=== PATIENT | female | born 1960 | race Caucasian/White ===

== ENCOUNTER 2016-05-21 06:37 | Emergency (ER) | payer SELFPAY ==
[~2016-05-21] VITALS: Ht 157.5 cm; Wt 40.0 kg
[~2016-05-21 06:37] MED LIST: VENTAER INH
[2016-05-21 06:43] VITALS: BP 126/58; PULSE 82; RESP 18; TEMP 102.3; O2SAT 99
[2016-05-21] MEDS ORDERED: VENTAER INH (06:43)
--- NOTE | 2016-05-21 06:59 | PD ---
HPI . cold, flu, gi upset x 4 days Chief Complaint: Cold / Flu Symptoms Time Seen by Provider: 06:59 Travel History International Travel<30 days: No Contact w/Intl Traveler<30days: No Traveled to known affect area: No History of Present Illness HPI 56-year-old female with history of emphyseam and tobaccoism here with complaints of flulike symptoms for 4 days. Patient says she initially started off with fever, chills, nausea, vomiting, diarrhea on and Saturday. The diarrhea has subsided, but she continues to experience fever, chills, coughing with some phlegm, poor oral intake and intermittent nausea and vomiting. Patient has not tried anything to improve her symptoms. She does not have a primary care provider. She was transported to the hospital via [facility] as she was too weak and frail to come by herself. In transport to the ED patient had nausea and vomiting and was given Zofran. At the time of examination patient admits to intermittent chest pain only when coughing. She denies any shortness of breath. She is no longer having diarrhea. PFSH Past Medical History Respiratory: Yes (EMPHYSEMA) ?: Not Menopausal: Yes : 5 Para: 3 Past Surgical History Hysterectomy: No Other Surgery: Yes (NECK SURGERIES/ HAND) Social History Alcohol Use: No Tobacco Use: Yes (1/2PPD) Substance Use: Yes (marijuana) Allergies-Medications (Allergen,Severity, Reaction): Coded Allergies: No Known Allergies (Unverified , 05/21/16) Reported Meds & Prescriptions Reported Meds & Active Scripts Active Proair Hfa 8.5 GM Inh (Albuterol Sulfate) 90 Mcg/Act Aer 2 Puff INH Q6H PRN 108 mcg/actuation Tessalon Perles (Benzonatate) 100 Mg Cap 100 Mg PO TID PRN Zithromax Z-Reinaldo (Azithromycin) 250 Mg Dspk 250 Mg PO DIRECTED 500 MG (2 tabs) day 1, then 1 tab days 2-5. Prednisone 50 Mg Tab 50 Mg PO DAILY Reported Ventolin Hfa 18 GM Inh (Albuterol Sulfate) 90 Mcg/Act Aer 2 Puff INH Q4H PRN Review of Systems General / Constitutional: Positive: Fever, Chills Eyes: No: Visual changes HENT: Positive: Congestion, No: Headaches, Neck Stiffness Cardiovascular: No: Chest Pain or Discomfort Respiratory: Positive: Cough, Shortness of Breath, Wheezing Gastrointestinal: Positive: Nausea, Vomiting, No: Diarrhea, Abdominal Pain Genitourinary: No: Dysuria Musculoskeletal: No: Pain Skin: No Rash Neurologic: No: Weakness Psychiatric: No: Depression Endocrine: No: Polydipsia Hematologic/Lymphatic: No: Easy Bruising Physical Exam Narrative GENERAL: AAO x 3,ill appearing, frail, cachetic, no respiratory distress SKIN: Warm and dry. HEAD: Normocephalic and atraumatic. EYES: No scleral icterus. No injection or drainage. EOM intact, PERRLA ENT: No nasal drainage noted. Mucous membranes pink. Airway patent. Mild post pharynx erythema. Left TM slightly erythematous. NECK: Supple, trachea midline. No JVD. No lymphadenopathy. CARDIOVASCULAR: Regular rate and rhythm without murmurs, gallops, or rubs. RESPIRATORY: Breath sounds diminished bilaterally. Scattered wheezing .No accessory muscle use. No rhonchi or rales. GASTROINTESTINAL: Abdomen soft, non-tender, nondistended. EXTREMITIES: No cyanosis or edema. BACK: Nontender without obvious deformity. No CVA tenderness. PSYCH: AAO x 3, normal affect. Data Data Last Documented VS Vital Signs Date Time Temp Pulse Resp B/P Pulse Ox O2 Delivery O2 Flow Rate FiO2 05/21/16 10:46 99.1 76 18 129/74 94 Nasal Cannula 1 Orders Acetaminophen (Tylenol) (05/21/16 07:00) Influenzae A/B Antigen (05/21/16 06:59) Complete Blood Count With Diff (05/21/16 07:17) Basic Metabolic Panel (Bmp) (05/21/16 07:17) Iv Access Insert/Monitor (05/21/16 07:17) Ecg Monitoring (05/21/16 07:17) Oximetry (05/21/16 07:17) Oxygen Administration (05/21/16 07:17) Chest, Single Ap (05/21/16 07:17) Sodium Chloride 0.9% Flush (Ns Flush) (05/21/16 07:30) Lactic Acid Sepsis Protocol (05/21/16 07:39) Blood Culture (05/21/16 07:39) Albuterol-Ipratropium Neb (Duoneb Neb) (05/21/16 09:00) Prednisone (Deltasone) (05/21/16 09:45) Labs Laboratory Tests Test 05/21/16 05/21/16 05/21/16 07:20 07:30 08:04 Sodium Level 129 MEQ/L Potassium Level 3.6 MEQ/L Chloride Level 94 MEQ/L Carbon Dioxide Level 26.1 MEQ/L Anion Gap 9 MEQ/L Blood Urea Nitrogen 9 MG/DL Creatinine 0.77 MG/DL Estimat Glomerular Filtration 78 ML/MIN Rate Random Glucose 100 MG/DL Calcium Level 8.2 MG/DL White Blood Count 7.3 TH/MM3 Red Blood Count 4.45 MIL/MM3 Hemoglobin 12.7 GM/DL Hematocrit 37.9 % Mean Corpuscular Volume 85.1 FL Mean Corpuscular Hemoglobin 28.4 PG Mean Corpuscular Hemoglobin 33.4 % Concent Red Cell Distribution Width 19.9 % Platelet Count 141 TH/MM3 Mean Platelet Volume 8.8 FL Neutrophils (%) (Auto) 87.4 % Lymphocytes (%) (Auto) 4.5 % Monocytes (%) (Auto) 7.4 % Eosinophils (%) (Auto) 0.0 % Basophils (%) (Auto) 0.7 % Neutrophils # (Auto) 6.4 TH/MM3 Lymphocytes # (Auto) 0.3 TH/MM3 Monocytes # (Auto) 0.5 TH/MM3 Eosinophils # (Auto) 0.0 TH/MM3 Basophils # (Auto) 0.1 TH/MM3 CBC Comment DIFF FINAL Differential Comment Lactic Acid Level 1.9 mmol/L MDM Medical Decision Making Medical Screen Exam Complete: Yes Emergency Medical Condition: Yes Medical Record Reviewed: Yes Differential Diagnosis influenza, copd exacerbation, PNA, gastroenteritis, less likely sepsis Narrative Course 56-year-old female with history of emphyseam and tobaccoism here with complaints of flulike symptoms for 4 days. Patient says she initially started off with fever, chills, nausea, vomiting, diarrhea on and Saturday. The diarrhea has subsided, but she continues to experience fever, chills, coughing with some phlegm, poor oral intake and intermittent nausea and vomiting. Patient has not tried anything to improve her symptoms. She does not have a primary care provider. She was transported to the hospital via [facility] as she was too weak and frail to come by herself. In transport to the ED patient had nausea and vomiting and was given Zofran. At the time of examination patient admits to intermittent chest pain only when coughing. She denies any shortness of breath. She is no longer having diarrhea. Patient was seen and examined. She is ill-appearing with scattered wheezing. She is febrile with a temperature of 102.3. While in the ED patient was given some Tylenol. Flu testing was ordered along with CBC, BMP and chest x-ray. CBC within normal limits except for low platelet count of 141. BMP with sodium of 129. Chest x-ray with hyperinflation usually seen in COPD. Influenza test negative. Temp recheck 99.6 Lactic acid WNL Given nebulizer treatment. Patient rechecked and doing better. Explained discharge meds and instructions to her. Encouraged her to follow up with her primary care provider. Diagnosis Primary Impression: COPD exacerbation Additional Impression: Viral intestinal infection Patient Instructions: COPD (Chronic Obstructive Pulmonary Disease) (ED), General Instructions Additional Instructions: Take medications as prescribed. Follow up with your primary care doctor. Return to ED if your symptoms return or worsen. Med/Other Pt SpecificInfo: Prescription(s) given Scripts Albuterol 8.5 GM Inh (Proair Hfa 8.5 GM Inh)90 Mcg/Act Aer2 Puff INH Q6H PRN ( SHORTNESS OF BREATH) #1 INHALER Ref 0 108 mcg/actuation Prov:Rosa Silva 05/21/16 Benzonatate (Tessalon Perles)100 Mg [id number] Mg PO TID PRN (COUGH) #30 CAP Ref 0 Prov:Rosa Silva 05/21/16 Azithromycin (Zithromax Z-Reinaldo)250 Mg [id number] Mg PO DIRECTED #1 DSPK Ref 0 500 MG (2 tabs) day 1, then 1 tab days 2-5. Prov:Rosa Silva 05/21/16 Prednisone 50 Mg Tab50 Mg PO DAILY #5 TAB Ref 0 Prov:Rosa Silva 05/21/16 Disposition: 01 DISCHARGE HOME Condition: Stable Rosa Silva May 21, 2016 06:59
[2016-05-21] MEDS ORDERED: ACETAMINOPHEN 500 MG CPLT PO ONE (07:00)
[2016-05-21 07:16] VITALS: BP 129/59; PULSE 82; RESP 18; TEMP 103.2; O2SAT 96
[2016-05-21] MEDS ORDERED: SODIUM CHLORIDE 0.9% FLUSH 5 ML FLUSH IVF PRN (07:30)
--- NOTE | 2016-05-21 07:43 | RADRPT ---
EXAM DATE/TIME: 05/21/2016 07:22 [facility] COMPARISON: No previous studies available for comparison. INDICATIONS : Shortness of breath. MEDICAL HISTORY : Chronic obstructive pulmonary disease. SURGICAL HISTORY : None. ENCOUNTER: Initial ACUITY: 1 week PAIN SCORE: 0/10 LOCATION: Bilateral chest FINDINGS: A single view of the chest demonstrates hyperinflation which can be seen with COPD. No infiltrates a re seen. Heart is normal in size. The mediastinal contours are unremarkable. Osseous structures are intact. CONCLUSION: Hyperinflation which can be seen with COPD. No evidence for an infiltrate. . Benton Mendosa MD on May 21, 2016 at 7:41 Board Certified Radiologist. This report was verified electronically.
[2016-05-21 07:49] LABS: AUTOMATED NEUTROPHIL # 6.4 TH/MM3 (1.8-7.7); BASOPHIL # 0.1 TH/MM3 (0-0.2); BASOPHIL % 0.7 % (0.0-2.0); HEMATOCRIT 37.9 % (35.0-46.0); HEMO FLAGS DIFF FINAL; LYMPH % 4.5 % (9.0-44.0); LYMPHOCYTE # 0.3 TH/MM3 (1.0-4.8); MEAN CELL VOLUME 85.1 FL (80.0-100.0); MEAN CORPUSCULAR HEMOGLOBIN 28.4 PG (27.0-34.0); MEAN CORPUSCULAR HGB CONC 33.4 % (32.0-36.0); MONO % 7.4 % (0.0-8.0); NEUT % 87.4 % (16.0-70.0); PLATELET COUNT 141 TH/MM3 (150-450); RED BLOOD COUNT 4.45 MIL/MM3 (4.00-5.30); RED CELL DISTRIBUTION WIDTH 19.9 % (11.6-17.2); WHITE BLOOD COUNT 7.3 TH/MM3 (4.0-11.0)
[2016-05-21 08:06] VITALS: RESP 18; O2SAT 95
[2016-05-21 08:23] LABS: BICARBONATE 26.1 MEQ/L (21.0-32.0); POTASSIUM 3.6 MEQ/L (3.5-5.1)
[2016-05-21 08:59] VITALS: BP 111/55; PULSE 79; RESP 18; TEMP 99.6; O2SAT 94
[2016-05-21] MEDS ORDERED: RESP: ALBUTEROL 2.5 MG/IPRATROPIUM 0.5 MG NEB (SCH) INH ONE (09:00)
--- NOTE | 2016-05-21 09:00 | PD ---
Data Data Last Documented VS Vital Signs Date Time Temp Pulse Resp B/P Pulse Ox O2 Delivery O2 Flow Rate FiO2 05/21/16 08:06 18 95 Nasal Cannula 2 05/21/16 07:16 103.2 82 129/59 Orders Acetaminophen (Tylenol) (05/21/16 07:00) Influenzae A/B Antigen (05/21/16 06:59) Complete Blood Count With Diff (05/21/16 07:17) Basic Metabolic Panel (Bmp) (05/21/16 07:17) Iv Access Insert/Monitor (05/21/16 07:17) Ecg Monitoring (05/21/16 07:17) Oximetry (05/21/16 07:17) Oxygen Administration (05/21/16 07:17) Chest, Single Ap (05/21/16 07:17) Sodium Chloride 0.9% Flush (Ns Flush) (05/21/16 07:30) Lactic Acid Sepsis Protocol (05/21/16 07:39) Blood Culture (05/21/16 07:39) Labs Laboratory Tests Test 05/21/16 05/21/16 05/21/16 07:20 07:30 08:04 Sodium Level 129 MEQ/L Potassium Level 3.6 MEQ/L Chloride Level 94 MEQ/L Carbon Dioxide Level 26.1 MEQ/L Anion Gap 9 MEQ/L Blood Urea Nitrogen 9 MG/DL Creatinine 0.77 MG/DL Estimat Glomerular Filtration 78 ML/MIN Rate Random Glucose 100 MG/DL Calcium Level 8.2 MG/DL White Blood Count 7.3 TH/MM3 Red Blood Count 4.45 MIL/MM3 Hemoglobin 12.7 GM/DL Hematocrit 37.9 % Mean Corpuscular Volume 85.1 FL Mean Corpuscular Hemoglobin 28.4 PG Mean Corpuscular Hemoglobin 33.4 % Concent Red Cell Distribution Width 19.9 % Platelet Count 141 TH/MM3 Mean Platelet Volume 8.8 FL Neutrophils (%) (Auto) 87.4 % Lymphocytes (%) (Auto) 4.5 % Monocytes (%) (Auto) 7.4 % Eosinophils (%) (Auto) 0.0 % Basophils (%) (Auto) 0.7 % Neutrophils # (Auto) 6.4 TH/MM3 Lymphocytes # (Auto) 0.3 TH/MM3 Monocytes # (Auto) 0.5 TH/MM3 Eosinophils # (Auto) 0.0 TH/MM3 Basophils # (Auto) 0.1 TH/MM3 CBC Comment DIFF FINAL Differential Comment Lactic Acid Level 1.9 mmol/L MDM Supervised Visit with NAHOMI: Yes Narrative Course I, Dr. Kaplan, have reviewed the advance practice practioner's documentation and am in agreement, met with the patient face to face, made the diagnosis, and the medical decision making was done by me. *My assessment and Findings: 56-year-old female with history of COPD here with 4 days of flulike symptoms, nonproductive cough, subjective fevers/chills, nausea vomiting and diarrhea. Patient is cachectic, but in no respiratory distress. Wheezing on exam albeit minimally. Patient is febrile, and has not taken any antipyretics prior to arrival. Abdominal examination is benign and she does not have any abdominal pain complaints. Differential includes viral syndrome, influenza, COPD, pneumonia, gastroenteritis, dehydration, electrolyte abnormality and less likely sepsis. Patient given steroids, nebulizer therapy, Tylenol. Influenza and laboratory workup including lactic acid were notable only for mild hyponatremia. Chest x-ray negative with no evidence of infiltrate. Patient felt improved, fever defervesced and she will be discharged to home with symptomatic therapy for bronchitis. Patient Instructions: General Instructions, COPD (Chronic Obstructive Pulmonary Disease) (ED) Additional Instruction: Take medications as prescribed. Follow up with your primary care doctor. Return to ED if your symptoms return or worsen. Disposition: 01 DISCHARGE HOME Condition: Stable Zina Kaplan MD May 21, 2016 09:00
[2016-05-21] MEDS ORDERED: ALBUAER3 INH (09:03)
[2016-05-21] MEDS ORDERED: ZITHTAB PO (09:03)
[2016-05-21] MEDS ORDERED: BENZ100 PO (09:03)
[2016-05-21] MEDS ORDERED: PRED50 PO (09:03)
[2016-05-21] MEDS ORDERED: predniSONE 50 MG TAB PO ONE (09:45)
[2016-05-21 10:00] VITALS: O2SAT 92
[2016-05-21 10:46] VITALS: BP 129/74; TEMP 99.1
== END 2016-05-21 10:35 | disposition home or self-care (01) ==
LOC: NEPE 06:37
DX: J44.9 Chronic obstructive pulmonary disease, unspecified (principal); F17.210 Nicotine dependence, cigarettes, uncomplicated; F12.10 Cannabis abuse, uncomplicated
CPT/HCPCS: 71010; 80048; 83605; 85025; 87040; 87804; 94664; 99284; J7512